=== PATIENT | female | born 1995 | race Two or more races ===

== ENCOUNTER 2024-03-05 20:05 | Emergency (ER) | payer MEDICAID, OTHER ==
[~2024-03-05] VITALS: Ht 162.6 cm; Wt 49.0 kg
[2024-03-05] MEDS ORDERED: ONDANSETRON HCL 4 MG/2 ML VIAL IM ONE (21:15)
[2024-03-05] MEDS: ONDANSETRON HCL 4 MG/2 ML VIAL IV ONE (22:06)
[2024-03-05 22:55] LABS: Rapid Influenza A Negative (Negative); Rapid Influenza B Negative (Negative)
[2024-03-05 22:56] LABS: COVID19 ANTIGEN SOFIA FIA NEGATIVE (NEGATIVE)
[2024-03-05] MEDS: SODIUM CHLORIDE 0.9% 1,000 ML IV ONE (23:13)
[2024-03-05 23:33] LABS: Hematocrit 43.2 % (36.0-46.0); Hemoglobin 14.8 g/dL (12.2-16.2); Mean Corpuscular Hemoglobin 31.9 pg (28.0-32.0); Mean Corpuscular Hgb Conc. 34.2 g/dL (32.0-36.0); Mean Corpuscular Volume 93.2 fL (80.0-100.0); Platelet Count (auto) 178 10^3/uL (140-450); Red Blood Cells 4.64 10^6/uL (4.0-5.20); Red Cell Distribution Width 12.9 % (11.8-14.3); White Blood Cell 10.9 10^3/uL (4.4-10.8)
[2024-03-05 23:43] LABS: Band Neutrophils % (manual) 0; Basophils % (manual) 0 (0.0-2.0); Blast Cells 0; Eosinophils % (manual) 0 (0-7); Metamyelocytes % 0; Myelocytes % 0; Promyelocytes % 0; Reactive Lymphocytes 0
[2024-03-05 23:49] LABS: Alanine Aminotransferase 11 U/L (7-40); Albumin 4.9 g/dL (3.2-4.8); Alkaline Phosphatase 60 U/L (46-116); Anion Gap 4 (5-15); Aspartate Aminotransferase < 8 U/L (13-40); BUN/Creatinine Ratio 16.1 (10.0-20.0); Bilirubin, Total 0.7 mg/dL (0.2-1.0); Blood Urea Nitrogen 10 mg/dL (9-23); Calcium 9.4 mg/dL (8.7-10.4); Carbon Dioxide 26 mmol/L (20-31); Chloride 109 mmol/L (98-107); Glucose 97 mg/dL (74-106); Lipase 33 U/L (12-53); Potassium 4.3 mmol/L (3.5-5.1); Sodium 139 mmol/L (136-145); Total Protein 7.6 g/dL (5.7-8.2)
[2024-03-06] MEDS: KETOROLAC TROMETH 30 MG/ML 1ML VIAL IV ONE (01:01)
[2024-03-06 01:04] VITALS: BP 103/64; PULSE 91; RESP 18; TEMP 98.7; O2SAT 98
[2024-03-06 01:19] LABS: Urine Bacteria FEW /hpf (None Seen); Urine Blood Negative /uL (Negative); Urine Clarity Clear (Clear); Urine Color Yellow (Yellow); Urine Mucus FEW (None Seen); Urine Protein, UAD TRACE (Negative); Urine Specific Gravity 1.034 (1.001-1.035); Urine Urobilinogen 2 mg/dL (Negative); Urine WBC <1 /hpf (0 - 5)
[2024-03-06 01:36] LABS: Lymphocytes % (manual) 6 (10.0-50.0); Monocytes % (manual) 4 (0-12); Platelet Estimate Adequate
--- NOTE | 2024-03-06 02:23 | DVH ---
Exam: CT CT AB PEL WO CON-NO ORAL OR IV History: abdominal pain n/v Comparison Study: None available at time of dictation. Technique: Multidetector spiral CT of the abdomen was performed from lung bases to pubic symphysis. Imaging was performed without IV contrast. Axial, coronal and sagittal multiplanar reformats were ob tained from the axial data set by the technologist. Radiation Dose : 1. Abdomen/Pelvis: CTDIvol 5 mGy, DLP 280 mGy*cm. Findings: Evaluation of solid organs is limited due to lack of intravenous contrast use. Lung Bases: No acute or significant lung base finding. Normal heart size. No pleural or pericardial effusion. Liver: The liver is normal in size. No focal lesions. Gallbladder and Biliary Tree: Unremarkable Spleen: Unremarkable Pancreas: The pancreas is grossly normal in appearance. Adrenal Glands: Unremarkable Kidneys: Kidneys are grossly normal without calculi or hydronephrosis. Bladder: Grossly unremarkable for degree of distention. Bowel: The stomach is grossly normal in appearance. Small bowel and colon are normal in caliber and d istribution. The appendix is not visualized; however, no secondary findings of acute appendicitis id entified. Ascites: Absent Lymphadenopathy: No mesenteric, retroperitoneal or periportal lymphadenopathy. Abdominal Wall and Mesentery: Unremarkable. Vasculature: The visualized abdominal aorta is normal in size and caliber. Evaluation of abdominal a nd pelvic vessels is limited due to lack of intravenous contrast. Pelvic Organs: Unremarkable Musculoskeletal: No aggressive focal bony lesions, acute fractures or dislocation. IMPRESSION: Limited noncontrast evaluation demonstrates no acute abdominal/ pelvic abnormality.
[2024-03-06] MEDS ORDERED: ZOFR4T PO (02:29)
--- NOTE | 2024-03-06 02:29 | ED.PDOC ---
GI ASSESSMENT HPI Comments This is a 28-year-old female presents to the ED chief complaint nausea vomiting. Symptoms started about 1 week ago. Related symptoms of diffuse abdominal pain, decreased appetite, chills, fevers subjective. Denies chest pain, difficulty breathing, shortness of breath, or diarrhea. Chief Complaint: Flu like Time Seen by MD: 20:12 Reviewed Notes: Nurses Notes, Medications, Allergies Allergies: Coded Allergies: NO KNOWN ALLERGIES (Unverified , 03/05/24) Home Meds Active Scripts Ondansetron Odt 4MG Tab (ZOFRAN PO) 4 Mg Tb, 4 MG PO Q6HP PRN for 5 Days, #20 TAB ODT TAB-DISSOLVE IN MOUTH, THEN SWALLOW Prov:NERY GUTIERREZ SUPPORT ASSISTANT 03/06/24 Information Source: Patient Mode of Arrival: Ambulatory Past Medical History PAST MEDICAL HISTORY: Denies Surgical History: Denies all surgeries MASONRY TEACHER History: No Pertinent MASONRY TEACHER History Family History Family History: Reviewed,noncontributory to illness Constitutional: reports: chills, fatigue, fever; denies: diaphoresis, malaise, sweats, weakness, others EENTM: denies: blurred vision, double vision, ear bleeding, ear discharge, ear drainage, ear pain, ear ringing, eye pain, eye redness, hearing loss, mouth pain, mouth swelling, nasal discharge, nose bleeding, nose congestion, nose pain, photophobia, tearing, throat pain, throat swelling, voice changes, others Respiratory: denies: cough, hemoptysis, orthopnea, SOB at rest, shortness of breath, SOB with excertion, stridor, wheezing, others Cardiovascular: denies: chest pain, dizzy spells, diaphoresis, Dyspnea on exertion, edema, irregular heart beat, left arm pain, lightheadedness, palpitations, PND, syncope, others Gastrointestinal: reports: abdomen distended, abdominal pain, nausea, vomiting; denies: blood streaked bowels, constipated, diarrhea, dysphagia, difficulty swallowing, hematemesis, melena, poor appetite, poor fluid intake, rectal bleeding, rectal pain, others Genitourinary: denies: abnormal vagina bleeding, burning, dyspareunia, dysuria, flank pain, frequency, hematuria, incontinence, pain, , vagina discharge, urgency, others Neurological: denies: dizziness, fainting, headache, left sided numbness, left sided weakness, numbness, paresthesia, pre-existing deficit, right sided numbness, right sided weakness, seizure, speech problems, tingling, tremors, weakness, others Musculoskeletal: denies: back pain, gout, joint pain, joint swelling, muscle pain, muscle stiffness, neck pain, others Integumetry: denies: bruises, change in color, change in hair/nails, dryness, laceration, lesions, lumps, rash, wounds, others Allergic/Immunocompromised: denies: Difficulty Healing, Frequent Infections, Hives, Itching, others Hematologic/Lymphatic: denies: anemia, blood clots, easy bleeding, easy bruising, swollen glands, others Endocrine: denies: excessive hunger, excessive sweating, excessive thirst, excessive urination, flushing, intolerance to cold, intolerance to heat, unexplained weight gain, unexplained weight loss, others Psychiatric: denies: anxiety, bipolar disorder, depression, hopeless, panic disorder, schizophrenia, sleepless, suicidal, others Physical Exam General Appearance: No Apparent Distress, Normal HEENT: Normal ENT Inspection, Pharynx Normal, TMs Normal Neck: Full Range of Motion, Non-Tender, Normal, Normal Inspection Respiratory: Chest Non-Tender, Lungs Clear, No Accessory Muscle Use, No Respiratory Distress, Normal Breath Sounds Cardiovascular: No Murmur, Normal Peripheral Pulses, Regular Rate/Rhythm Breast Exam: Deferred Gastrointestinal: No Organomegaly, No Pulsatile Mass, Normal Bowel Sounds, Soft, Tenderness (Diffuse) Genitalia: Deferred Pelvic: Deferred Rectal: Deferred Extremities: No calf tenderness, Normal capillary refill, Normal inspection, Normal range of motion, Non-tender, No pedal edema Musculoskeletal : Apperance: Normal Neurologic: Alert, tailor's aide II-XII nml as Tested, No Motor Deficits, Normal Affect, Normal Mood, No Sensory Deficits Cerebellar Function: Normal Reflexes: Normal Skin: Dry, Pallor, Warm Lymphatic: No Adenopathy Was a procedure done? Was a procedure done?: No GI differential Dx Differential Diagnosis: Gastritis/PUD X-Ray, Labs, Meds, VS Vital Signs Date Time Temp Pulse Resp B/P (MAP) Pulse Ox O2 Delivery O2 Flow Rate FiO2 03/06/24 02:30 Room Air 03/06/24 01:04 98.7 91 18 103/64 (77) 98 98.7 11/24 20:16 14 99 Room Air* 0 21 03/05/24 20:08 98.3 98 14 118/77 (91) 99 Lab Test 03/05/24 23:15 03/05/24 23:08 03/05/24 22:07 Range/Units White Blood Count 10.9 H 4.4-10.8 10^3/uL Red Blood Count 4.64 4.0-5.20 10^6/uL Hemoglobin 14.8 12.2-16.2 g/dL Hematocrit 43.2 36.0-46.0 % Mean Corpuscular Volume 93.2 80.0-100.0 fL Mean Corpuscular Hemoglobin 31.9 28.0-32.0 pg Mean Corpuscular Hemoglobin Concent 34.2 32.0-36.0 g/dL Red Cell Distribution Width 12.9 11.8-14.3 % Platelet Count 178 140-450 10^3/uL Mean Platelet Volume 10.8 6.9-10.8 fL Neutrophils (%) (Auto) 37.0-80.0 % Lymphocytes (%) (Auto) 10.0-50.0 % Monocytes (%) (Auto) 0.0-12.0 % Basophils (%) (Auto) 0.0-2.0 % Neutrophils # (Auto) 1.6-8.6 10 ^3/uL Lymphocytes # (Auto) 0.4-5.4 10 ^3/uL Monocytes # (Auto) 0-1.3 10 ^3/uL Differential Total Cells Counted 100.0 100 Neutrophils % (Manual) 90 H 37.0-80.0 Band Neutrophils % (Manual) 0 Lymphocytes % (Manual) 6 L 10.0-50.0 Monocytes % (Manual) 4 0-12 Eosinophils % (Manual) 0 0-7 Basophils % (Manual) 0 0.0-2.0 Metamyelocytes % (manual) 0 Myelocytes % (Manual) 0 Promyelocytes % (Manual) 0 Blast Cells % (Manual) 0 Reactive Lymphocytes 0 Platelet Estimate Adequate Sodium Level 139 136-145 mmol/L Potassium Level 4.3 3.5-5.1 mmol/L Chloride Level 109 H 98-107 mmol/L Carbon Dioxide Level 26 20-31 mmol/L Anion Gap 4 L 5-15 Blood Urea Nitrogen 10 9-23 mg/dL Creatinine 0.62 0.550-1.02 mg/dL Glomerular Filtration Rate Calc 124 >90 mL/min BUN/Creatinine Ratio 16.1 10.0-20.0 Serum Glucose 97 74-106 mg/dL Calcium Level 9.4 8.7-10.4 mg/dL Total Bilirubin 0.7 0.2-1.0 mg/dL Aspartate Amino Transferase (AST) < 8 L 13-40 U/L Alanine Aminotransferase (ALT) 11 7-40 U/L Alkaline Phosphatase 60 46-116 U/L Total Protein 7.6 5.7-8.2 g/dL Albumin 4.9 H 3.2-4.8 g/dL Lipase 33 12-53 U/L Urine Color Yellow Yellow Urine Clarity Clear Clear Urine pH 6.0 5.0-9.0 Urine Specific [place] 1.034 1.001-1.035 Urine Protein Trace H Negative Urine Ketones 4+ H Negative Urine Blood Negative Negative /uL Urine Nitrite Negative Negative Urine Bilirubin Negative Negative Urine Urobilinogen 2 H Negative mg/dL Urine Leukocyte Esterase Negative Negative /uL Urine RBC 1 0 - 4 /hpf Urine WBC <1 0 - 5 /hpf Urine Squamous Epithelial Cells Few <5 /hpf Urine Bacteria Few H None Seen /hpf Urine Mucus Few None Seen Urine Glucose Normal Normal mg/dL Urine Test Negative Negative Influenza Type A Antigen Negative Negative Influenza Type B Antigen Negative Negative SARS-CoV-2 Antigen (Rapid) Negative NEGATIVE Current Medications Medications (Trade) Dose Ordered Sig/Gabriela Route Start Time Stop Time Status Last Admin Ondansetron HCl (Zofran) 8 mg ONCE ONCE IV 03/05/24 22:00 03/05/24 22:01 DC 03/05/24 22:06 Sodium Chloride 1,000 ml @ 1,000 mls/hr Q1H ONCE IV 03/05/24 23:15 03/06/24 00:14 DC 03/05/24 23:13 Ketorolac Tromethamine (Toradol Injection) 30 mg ONCE ONCE IV 03/06/24 00:45 03/06/24 00:46 DC 03/06/24 01:09 Time of 1ST Reevaluation: 02:28 Reevaluation 1ST: Improved Patient Education/Counseling: Diagnosis, Treatment, Prognosis, Need For Follow Up Family Education/Counseling: No Family Present Departure 1 Departure Time of Disposition: 02:27 Impression: Primary Impression: Abdominal pain Qualified Codes: R10.84 - Generalized abdominal pain Additional Impression: Nausea & vomiting Qualified Codes: R11.2 - Nausea with vomiting, unspecified Disposition: 01 HOME / SELF CARE / HOMELESS Condition: Stable e-Prescriptions Ondansetron Odt 4MG Tab (ZOFRAN PO) 4 Mg Tb 4 MG PO Q6HP PRN for 5 Days, #20 TAB ODT TAB-DISSOLVE IN MOUTH, THEN SWALLOW Prov: NERY GUTIERREZ 03/06/24 Discharged With: Self Critical Care Note Critical Care Time?: No Stability Stability form required: No NERY GUTIERREZ Mar 06, 2024 02:29
== END 2024-03-06 02:35 | disposition home or self-care (01) ==
LOC: ER 20:05
DX: R10.84 Generalized abdominal pain (principal); R11.2 Nausea with vomiting, unspecified; R50.9 Fever, unspecified; Z20.822 Contact with and (suspected) exposure to COVID-19; Z79.899 Other long term (current) drug therapy
CPT/HCPCS: 36415; 74176; 80053; 81001; 81025; 83690; 85007; 85027; 87426; 87804; 96361; 96374; 96375; 99285; J1885; J2405; J7030

== ENCOUNTER 2024-04-23 17:43 | Emergency (ER) | payer MEDICAID ==
[~2024-04-23] VITALS: Ht 160 cm; Wt 49.0 kg
[~2024-04-23 17:43] MED LIST: ZOFR4T PO
--- NOTE | 2024-04-23 18:50 | ED.PDOC ---
History of Present Illness HPI Comments 28 y/o F presents with c/o abnormal vaginal bleeding, lower abdominal, back, and bilateral leg pain, nausea, and dizziness, today. Patient endorses on being on her period, currently, for the past 12x days and comments bleeding worsening, lately, with additional onset of remaining aforementioned symptoms, after consuming medroxyprogesterone prescription she was advised and prescribed by her WIND PROJECT MANAGER to take for her endometriosis. Patient comments on having large blood clot production in addition to pain being a 10/10 in severity. She report no further relevant or pertinent Hx, such as recent injuries, sexual activities, or known current . She denies having any lightheadedness, weakness, shortness of breath, fever, chills, or other associated symptoms or modifiers at this time. Chief Complaint: Vaginal Bleed Time Seen by MD: 18:30 Reviewed Notes: Nurses Notes, Medications, Allergies Allergies: Coded Allergies: NO KNOWN ALLERGIES (Unverified , 03/05/24) Home Meds Active Scripts Ondansetron Odt 4MG Tab (ZOFRAN PO) 4 Mg Tb, 4 MG PO Q6HP PRN for 5 Days, #20 TAB ODT TAB-DISSOLVE IN MOUTH, THEN SWALLOW Prov:NERY GUTIERREZ [facility] 03/06/24 Information Source: Patient Mode of Arrival: Ambulatory Severity: Moderate Timing: Days Duration: Since onset Prehospital treatment: None Past Medical History PAST MEDICAL HISTORY: Denies Surgical History: Appendectomy CIVIL PROJECT ENGINEER History: Endometriosis Family History Family History: Reviewed,noncontributory to illness, No family hx of Cancer, No family hx of Heart bharat, No family hx of HTN, No family hx ofKidney bharat, No family hx of Liver bharat, No family hx of Lung bharat, No family hx of Stroke, Family hx of DM Social History Smoker: Non-Smoker Alcohol: Denies ETOH Use Drugs: Denies Drug Use Lives In: Home Constitutional: denies: chills, diaphoresis, fatigue, fever, malaise, sweats, weakness, others EENTM: denies: blurred vision, double vision, ear bleeding, ear discharge, ear drainage, ear pain, ear ringing, eye pain, eye redness, hearing loss, mouth pain, mouth swelling, nasal discharge, nose bleeding, nose congestion, nose pain, photophobia, tearing, throat pain, throat swelling, voice changes, others Respiratory: denies: cough, hemoptysis, orthopnea, SOB at rest, shortness of breath, SOB with excertion, stridor, wheezing, others Cardiovascular: denies: chest pain, dizzy spells, diaphoresis, Dyspnea on exertion, edema, irregular heart beat, left arm pain, lightheadedness, palpitations, PND, syncope, others Gastrointestinal: reports: abdominal pain, nausea; denies: abdomen distended, blood streaked bowels, constipated, diarrhea, dysphagia, difficulty swallowing, hematemesis, melena, poor appetite, poor fluid intake, rectal bleeding, rectal pain, vomiting, others Genitourinary: denies: abnormal vagina bleeding, burning, dyspareunia, dysuria, flank pain, frequency, hematuria, incontinence, pain, , vagina discharge, urgency, others Neurological: reports: dizziness; denies: fainting, headache, left sided numbness, left sided weakness, numbness, paresthesia, pre-existing deficit, right sided numbness, right sided weakness, seizure, speech problems, tingling, tremors, weakness, others Musculoskeletal: reports: back pain, others (bilateral leg pain ); denies: gout, joint pain, joint swelling, muscle pain, muscle stiffness, neck pain Integumetry: denies: bruises, change in color, change in hair/nails, dryness, laceration, lesions, lumps, rash, wounds, others Allergic/Immunocompromised: denies: Difficulty Healing, Frequent Infections, Hives, Itching, others Hematologic/Lymphatic: denies: anemia, blood clots, easy bleeding, easy bruising, swollen glands, others Endocrine: denies: excessive hunger, excessive sweating, excessive thirst, excessive urination, flushing, intolerance to cold, intolerance to heat, unexplained weight gain, unexplained weight loss, others Psychiatric: denies: anxiety, bipolar disorder, depression, hopeless, panic disorder, schizophrenia, sleepless, suicidal, others All Other Systems: Reviewed and Negative Physical Exam General Appearance: Mild Distress HEENT: Normal ENT Inspection, Pharynx Normal, TMs Normal Neck: Full Range of Motion, Non-Tender, Normal, Normal Inspection Respiratory: Chest Non-Tender, Lungs Clear, No Accessory Muscle Use, No Respiratory Distress, Normal Breath Sounds Cardiovascular: No Edema, No JVD, No Murmur, No Gallop, Normal Peripheral Pulses, Regular Rate/Rhythm Breast Exam: Deferred Gastrointestinal: No Organomegaly, Non Tender, No Pulsatile Mass, Normal Bowel Sounds, Soft Genitalia: Deferred Pelvic: Deferred Rectal: Deferred Extremities: No calf tenderness, Normal capillary refill, Normal inspection, Normal range of motion, Non-tender, No pedal edema Musculoskeletal : Apperance: Normal Neurologic: Alert, home health administrator II-XII nml as Tested, No Motor Deficits, Normal Affect, Normal Mood, No Sensory Deficits Cerebellar Function: Normal Reflexes: Normal Skin: Dry, Normal Color, Warm Lymphatic: No Adenopathy Was a procedure done? Was a procedure done?: No Differential Dx Considerations may include: endometriosis, menorrhagia, dysmenorrhea, menorrhea, UTI, anemia X-Ray, Labs, Meds, VS Vital Signs Date Time Temp Pulse Resp B/P (MAP) Pulse Ox O2 Delivery O2 Flow Rate FiO2 04/23/24 18:11 98.5 86 18 130/83 (99) 100 Lab Test 04/23/24 19:18 Range/Units White Blood Count 5.9 4.4-10.8 10^3/uL Red Blood Count 4.18 4.0-5.20 10^6/uL Hemoglobin 13.3 12.2-16.2 g/dL Hematocrit 39.5 36.0-46.0 % Mean Corpuscular Volume 94.6 80.0-100.0 fL Mean Corpuscular Hemoglobin 31.8 28.0-32.0 pg Mean Corpuscular Hemoglobin Concent 33.6 32.0-36.0 g/dL Red Cell Distribution Width 13.0 11.8-14.3 % Platelet Count 196 140-450 10^3/uL Mean Platelet Volume 10.9 H 6.9-10.8 fL Neutrophils (%) (Auto) 61.0 37.0-80.0 % Lymphocytes (%) (Auto) 31.5 10.0-50.0 % Monocytes (%) (Auto) 6.2 0.0-12.0 % Eosinophils (%) (Auto) 0.8 0.0-7.0 % Basophils (%) (Auto) 0.5 0.0-2.0 % Neutrophils # (Auto) 3.6 1.6-8.6 10 ^3/uL Lymphocytes # (Auto) 1.9 0.4-5.4 10 ^3/uL Monocytes # (Auto) 0.4 0-1.3 10 ^3/uL Eosinophils # (Auto) 0 0-0.8 10 ^3/uL Basophils # (Auto) 0 0-0.2 10 ^3/uL Nucleated Red Blood Cells 0.0 % Prothrombin Time 11.2 9.3-11.8 sec Prothrombin Time INR 1.06 0.9-1.15 Activated Partial Thromboplast Time 28.4 24.5-34.5 SEC Beta HCG, Quantitative 3775.2 H 1.5-4.2 mIU/mL Ultrasound of the pelvis shows:IMPRESSION: No intrauterine or ectopic is seen at this time. Follow-up by trending beta hCGs and follow-up ultrasound in 7-14 days. The quantitative hCG is 3775.2 The CBC is within normal limits. We are contacting Dr. Nguyen The patient was to follow up with her OBGYN The patient has no significant pain at this time The patient will return to the emergency department's condition worsens. Images Reviewed?: Images reviewed and evaluated by me Time of 1ST Reevaluation: 19:00 Reevaluation 1ST: Unchanged Patient Education/Counseling: Diagnosis, Treatment, Prognosis, Need For Follow Up Family Education/Counseling: No Family Present Departure 1 Departure Time of Disposition: 21:40 Impression: Primary Impression: Abnormal vaginal bleeding Disposition: 01 HOME / SELF CARE / HOMELESS Condition: Fair Discharged With: Self Critical Care Note Critical Care Time?: No Stability Stability form required: No Heart Score Heart Score: Heart Score Response (Comments) Value History N/A 0 EKG N/A 0 Age N/A 0 Risk Factors N/A 0 Troponin N/A 0 Total 0 I personally scribed for FREDRICK DE JESUS MD ([email or web address]) on 04/23/24 at 18:50. Electronically submitted by Shaun Sheffield ([email or web address]). FREDRICK DE JESUS MD Apr 23, 2024 18:50
[2024-04-23 19:34] LABS: Basophils # (auto) 0 10 ^3/uL (0-0.2); Basophils % (auto) 0.5 % (0.0-2.0); Eosinophils # (auto) 0 10 ^3/uL (0-0.8); Eosinophils % (auto) 0.8 % (0.0-7.0); Hematocrit 39.5 % (36.0-46.0); Hemoglobin 13.3 g/dL (12.2-16.2); Lymphocytes # (auto) 1.9 10 ^3/uL (0.4-5.4); Lymphocytes % (auto) 31.5 % (10.0-50.0); Mean Corpuscular Hemoglobin 31.8 pg (28.0-32.0); Mean Corpuscular Hgb Conc. 33.6 g/dL (32.0-36.0); Mean Corpuscular Volume 94.6 fL (80.0-100.0); Monocytes # (auto) 0.4 10 ^3/uL (0-1.3); Monocytes % (auto) 6.2 % (0.0-12.0); Neutrophils # (auto) 3.6 10 ^3/uL (1.6-8.6); Platelet Count (auto) 196 10^3/uL (140-450); Red Blood Cells 4.18 10^6/uL (4.0-5.20); White Blood Cell 5.9 10^3/uL (4.4-10.8)
[2024-04-23 19:49] LABS: INR 1.06 (0.9-1.15); Partial Thromboplastin Time 28.4 SEC (24.5-34.5); Prothrombin Time 11.2 sec (9.3-11.8)
--- NOTE | 2024-04-23 21:13 | DVH ---
OBSTETRIC ULTRASOUND PRIOR TO 14 WEEKS CLINICAL INDICATION: pain beta HCG 3775 TECHNIQUE: Multiple grayscale ultrasound images were obtained of the pelvis via transabdominal and tr ansvaginal approach for obstetric evaluation. Limited color Doppler and spectral Doppler acquisitions were also obtained. COMPARISON: None FINDINGS: Uterus: 8.1 x 4.8 x 5.1 cm. No intrauterine gestational sac is seen. Trace fluid in the endometrial c anal. The endometrium measures 5 mm. Right adnexa: right ovary 2.3 x 2.1 x 2.2 cm. Normal arterial blood flow in the ovary. No right adne xal mass seen. Left adnexa: left ovary 2.6 x 2.4 x 2.2 cm. Normal arterial blood flow in the ovary. No left adnexal mass seen. Other: None IMPRESSION: No intrauterine or ectopic is seen at this time. Follow-up by trending beta hCGs and follow -up ultrasound in 7-14 days.
[2024-04-23 22:21] VITALS: BP 110/73; PULSE 70; RESP 18; TEMP 97.9; O2SAT 98
== END 2024-04-23 22:22 | disposition home or self-care (01) ==
LOC: ER 17:51
DX: N93.9 Abnormal uterine and vaginal bleeding, unspecified (principal); M79.604 Pain in right leg; M79.605 Pain in left leg; Z90.49 Acquired absence of other specified parts of digestive tract; Z79.899 Other long term (current) drug therapy
CPT/HCPCS: 36415; 76801; 76817; 84702; 85025; 85610; 85730

== ENCOUNTER 2024-07-14 17:04 | Emergency (ER) | payer MEDICAID ==
[~2024-07-14] VITALS: Ht 160 cm; Wt 46.9 kg
--- NOTE | 2024-07-14 18:16 | ED.PDOC ---
GI ASSESSMENT HPI Comments 29 y/o F, presents to the ED for CC of abdominal pain. Patient states, that she has been experiencing substernal chest discomfort that radiates to her abdomen causing pain x1day. Patient relays, that she has experienced similar symptoms in the past with a spontaneous in March of 2024; denies current . Patient comments on, new symptoms of foul ordered urine, chills, and fever. Patient complains of current 9/10 pain. Patient denies dysuria, hematuria, back pain, or shortness of breath. No other symptoms or modifying factors at this time. Chief Complaint: Abdominal Pain Time Seen by MD: 18:10 Reviewed Notes: Nurses Notes, Medications, Allergies Allergies: Coded Allergies: NO KNOWN ALLERGIES (Unverified , 03/05/24) Home Meds Active Scripts Ondansetron Odt 4MG Tab (ZOFRAN PO) 4 Mg Tb, 4 MG PO Q6HP PRN for 5 Days, #20 T AB ODT TAB-DISSOLVE IN MOUTH, THEN SWALLOW Prov:NERY GUTIERREZ [facility] 03/06/24 Information Source: Patient Mode of Arrival: Ambulatory Timing: Days Duration: Since onset Prehospital treatment: None Quality: None Vomitus: None Severity: Moderate Recent: None Recent Hx of: None Pain Location: Diffuse Modifying Factors: Nothing Associated sign and symptoms: None Past Medical History PAST MEDICAL HISTORY: Denies Surgical History: Appendectomy [employer] History: Endometriosis Family History Family History: Reviewed,noncontributory to illness, No family hx of Cancer, No family hx of Heart bharat, No family hx of HTN, No family hx ofKidney bharat, No family hx of Liver bharat, No family hx of Lung bharat, No family hx of Stroke, Family hx of DM Social History Smoker: Non-Smoker Alcohol: Denies ETOH Use Drugs: Denies Drug Use Lives In: Home Constitutional: reports: chills, fever; denies: diaphoresis, fatigue, malaise, sweats, weakness, others EENTM: denies: blurred vision, double vision, ear bleeding, ear discharge, ear drainage, ear pain, ear ringing, eye pain, eye redness, hearing loss, mouth pain, mouth swelling, nasal discharge, nose bleeding, nose congestion, nose pain, photophobia, tearing, throat pain, throat swelling, voice changes, others Respiratory: denies: cough, hemoptysis, orthopnea, SOB at rest, shortness of breath, SOB with excertion, stridor, wheezing, others Cardiovascular: reports: chest pain; denies: dizzy spells, diaphoresis, Dyspnea on exertion, edema, irregular heart beat, left arm pain, lightheadedness, palpitations, PND, syncope, others Gastrointestinal: reports: abdominal pain; denies: abdomen distended, blood streaked bowels, constipated, diarrhea, dysphagia, difficulty swallowing, hematemesis, melena, nausea, poor appetite, poor fluid intake, rectal bleeding, rectal pain, vomiting, others Genitourinary: denies: abnormal vagina bleeding, burning, dyspareunia, dysuria, flank pain, frequency, hematuria, incontinence, pain, , vagina discharge, urgency, others Neurological: denies: dizziness, fainting, headache, left sided numbness, left sided weakness, numbness, paresthesia, pre-existing deficit, right sided numbness, right sided weakness, seizure, speech problems, tingling, tremors, w eakness, others Musculoskeletal: denies: back pain, gout, joint pain, joint swelling, muscle pain, muscle stiffness, neck pain, others Integumetry: denies: bruises, change in color, change in hair/nails, dryness, laceration, lesions, lumps, rash, wounds, others Allergic/Immunocompromised: denies: Difficulty Healing, Frequent Infections, Hives, Itching, others Hematologic/Lymphatic: denies: anemia, blood clots, easy bleeding, easy bruising, swollen glands, others Endocrine: denies: excessive hunger, excessive sweating, excessive thirst, excessive urination, flushing, intolerance to cold, intolerance to heat, unexplained weight gain, unexplained weight loss, others Psychiatric: denies: anxiety, bipolar disorder, depression, hopeless, panic disorder, schizophrenia, sleepless, suicidal, others All Other Systems: Reviewed and Negative Physical Exam General Appearance: No Apparent Distress HEENT: Normal ENT Inspection, Pharynx Normal, TMs Normal Neck: Full Range of Motion, Non-Tender, Normal, Normal Inspection Respiratory: Chest Non-Tender, Lungs Clear, No Accessory Muscle Use, No Respiratory Distress, Normal Breath Sounds Cardiovascular: No Edema, No JVD, No Murmur, No Gallop, Normal Peripheral Pulses, Regular Rate/Rhythm Breast Exam: Deferred Gastrointestinal: No Organomegaly, Non Tender, No Pulsatile Mass, Normal Bowel Sounds, Soft Genitalia: Deferred Pelvic: Deferred Rectal: Deferred Extremities: No calf tenderness, Normal capillary refill, Normal inspection, Normal range of motion, Non-tender, No pedal edema Musculoskeletal : Apperance: Normal Neurologic: Alert, 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 Was a procedure done?: No GI differential Dx Differential Diagnosis: Gastritis/PUD, Gastroenteritis, Electrolyte Imbalance, Food Poisoning, Bacterial, Viral X-Ray, Labs, Meds, VS Vital Signs Date Time Temp Pulse Resp B/P (MAP) Pulse Ox O2 Delivery O2 Flow Rate FiO2 07/14/24 17:30 99.5 98 16 109/78 (88) 98 99.5 Lab Test 07/14/24 18:45 07/14/24 16:45 Range/Units White Blood Count 7.8 4.4-10.8 10^3/uL Red Blood Count 4.96 4.0-5.20 10^6/uL Hemoglobin 15.2 12.2-16.2 g/dL Hematocrit 45.4 36.0-46.0 % Mean Corpuscular Volume 91.5 80.0-100.0 fL Mean Corpuscular Hemoglobin 30.6 28.0-32.0 pg Mean Corpuscular Hemoglobin Concent 33.5 32.0-36.0 g/dL Red Cell Distribution Width 14.0 11.8-14.3 % Platelet Count 195 140-450 10^3/uL Mean Platelet Volume 11.4 H 6.9-10.8 fL Neutrophils (%) (Auto) 92.0 H 37.0-80.0 % Lymphocytes (%) (Auto) 4.6 L 10.0-50.0 % Monocytes (%) (Auto) 2.9 0.0-12.0 % Eosinophils (%) (Auto) 0.2 0.0-7.0 % Basophils (%) (Auto) 0.3 0.0-2.0 % Neutrophils # (Auto) 7.2 1.6-8.6 10 ^3/uL Lymphocytes # (Auto) 0.4 0.4-5.4 10 ^3/uL Monocytes # (Auto) 0.2 0-1.3 10 ^3/uL Eosinophils # (Auto) 0 0-0.8 10 ^3/uL Basophils # (Auto) 0 0-0.2 10 ^3/uL Nucleated Red Blood Cells 0.2 % Sodium Level 141 136-145 mmol/L Potassium Level 4.1 3.5-5.1 mmol/L Chloride Level 107 98-107 mmol/L Carbon Dioxide Level 28 20-31 mmol/L Anion Gap 6 5-15 Blood Urea Nitrogen 10 9-23 mg/dL Creatinine 0.73 0.550-1.02 mg/dL Glomerular Filtration Rate Calc 113 >90 mL/min BUN/Creatinine Ratio 13.7 10.0-20.0 Serum Glucose 103 74-106 mg/dL Calcium Level 10.1 8.7-10.4 mg/dL Urine Color Light-yellow Yellow Urine Clarity Clear Clear Urine pH 6.5 5.0-9.0 Urine Specific [place] 1.029 1.001-1.035 Urine Protein Negative Negative Urine Ketones Trace Negative Urine Blood Negative Negative /uL Urine Nitrite 1+ H Negative Urine Bilirubin Negative Negative Urine Urobilinogen Normal Negative mg/dL Urine Leukocyte Esterase Negative Negative /uL Urine RBC <1 0 - 4 /hpf Urine Microscopic WBC 1 0-5 /HPF Urine Squamous Epithelial Cells Few <5 /hpf Urine Bacteria Mod H None Seen /hpf Urine Mucus Few None Seen Urine Glucose Normal Normal mg/dL Urine Test Negative Negative The patient's urine test is negative The CBC and chemistry panel are within normal limits The test is negative Time of 1ST Reevaluation: 18:40 Reevaluation 1ST: Unchanged Patient Education/Counseling: Diagnosis, Treatment, Prognosis, Need For Follow Up Family Education/Counseling: No Family Present Departure 1 Departure Time of Disposition: 19:54 Impression: Primary Impression: Viral syndrome Disposition: 01 HOME / SELF CARE / HOMELESS Condition: Fair Discharged With: Self Critical Care Note Critical Care Time?: No Stability Stability form required: No Heart Score Heart Score: Heart Score Response (Comments) Value History N/A 0 EKG N/A 0 Age N/A 0 Risk Factors N/A 0 Troponin N/A 0 Total 0 I personally scribed for FREDRICK DE JESUS MD ([email or web address]) on 07/14/24 at 18:16. Electronically submitted by Stacey Harvey ([email or web address]). I personally scribed for FREDRICK DE JESUS MD ([email or web address]) on 07/14/24 at 18:25. Electronically submitted by Stacey Harvey ([email or web address]). FREDRICK DE JESUS MD Jul 14, 2024 18:16
[2024-07-14 18:24] LABS: Urine Bacteria MOD /hpf (None Seen); Urine Blood Negative /uL (Negative); Urine Clarity Clear (Clear); Urine Color Light-Yellow (Yellow); Urine Mucus FEW (None Seen); Urine Protein, UAD Negative (Negative); Urine Specific Gravity 1.029 (1.001-1.035); Urine Squamous Epithelial Cell FEW /hpf (<5); Urine Urobilinogen Normal (Negative); Urine WBC 1 /HPF (0-5); Urine pH 6.5 (5.0-9.0)
[2024-07-14 18:56] LABS: Basophils # (auto) 0 10 ^3/uL (0-0.2); Basophils % (auto) 0.3 % (0.0-2.0); Eosinophils # (auto) 0 10 ^3/uL (0-0.8); Eosinophils % (auto) 0.2 % (0.0-7.0); Hematocrit 45.4 % (36.0-46.0); Hemoglobin 15.2 g/dL (12.2-16.2); Lymphocytes # (auto) 0.4 10 ^3/uL (0.4-5.4); Lymphocytes % (auto) 4.6 % (10.0-50.0); Mean Corpuscular Hemoglobin 30.6 pg (28.0-32.0); Mean Corpuscular Hgb Conc. 33.5 g/dL (32.0-36.0); Mean Corpuscular Volume 91.5 fL (80.0-100.0); Monocytes # (auto) 0.2 10 ^3/uL (0-1.3); Monocytes % (auto) 2.9 % (0.0-12.0); Neutrophils # (auto) 7.2 10 ^3/uL (1.6-8.6); Nucleated Red Blood Cells % 0.2 %; Platelet Count (auto) 195 10^3/uL (140-450); Red Blood Cells 4.96 10^6/uL (4.0-5.20); White Blood Cell 7.8 10^3/uL (4.4-10.8)
[2024-07-14 19:07] LABS: Anion Gap 6 (5-15); Carbon Dioxide 28 mmol/L (20-31); Chloride 107 mmol/L (98-107); Potassium 4.1 mmol/L (3.5-5.1); Sodium 141 mmol/L (136-145)
[2024-07-14 19:08] LABS: Calcium 10.1 mg/dL (8.7-10.4)
[2024-07-14 19:13] LABS: BUN/Creatinine Ratio 13.7 (10.0-20.0); Blood Urea Nitrogen 10 mg/dL (9-23); Glucose 103 mg/dL (74-106)
[2024-07-14 20:25] VITALS: BP 112/78; PULSE 94; RESP 16; TEMP 98.4; O2SAT 100
== END 2024-07-14 20:26 | disposition home or self-care (01) ==
LOC: ER 17:04
DX: B34.9 Viral infection, unspecified (principal); Z32.02 Encounter for pregnancy test, result negative; Z90.49 Acquired absence of other specified parts of digestive tract
CPT/HCPCS: 36415; 80048; 81001; 81025; 85025